=== PATIENT | female | born 2000 | race Hispanic/Latino ===

== ENCOUNTER 2020-05-10 12:54 | Emergency (ER) | payer BC, SELFPAY ==
[2020-05-10 13:14] VITALS: BP 147/93; PULSE 100; RESP 18; TEMP 36.8; O2SAT 100
--- NOTE | 2020-05-10 13:29 | ED.SKABFB ---
HPI - Skin/Abscess/Foreign Bdy General Chief complaint: Skin/Abscess/Foreign Body Stated complaint: rash Time Seen by Provider: 05/10/20 13:29 Source: patient Mode of arrival: ambulatory History of Present Illness HPI narrative: Francesca Decker is a 19 yo female who comes to [facility] for complaints of rash on her hands and arms that is getting painful with handwashing does not itch; started 2 days ago ; has no new close no new bath products no different lotion; states is started to move her hands onto her upper arms; she has no pertinent medical history Related Data Home Medications Medication Instructions Recorded Confirmed Nortrel 35 (21) 1 tablet PO DAILY 01/09/19 05/10/20 Allergies Allergy/AdvReac Type Severity Reaction Status Date / Time No Known Allergies Allergy Verified 01/15/19 07:00 Review of Systems Review of Systems: Narrative: CONSTITUTIONAL: Denies fever, chills, sweats. EYES: Denies visual changes, redness, discharge. ENT: Denies rhinorrhea, congestion, sore throat, otalgia. CARDIOVASCULAR: Denies chest pain, palpitations, edema. RESPIRATORY: Denies dyspnea, wheezing, cough GASTROINTESTINAL: Denies abdominal pain, nausea, vomiting, diarrhea. GENITOURINARY: Denies dysuria, hematuria, abnormal discharge SKIN: Denies itching. Red papular rash on hands and going up arms is randomly placed. Started last few days NEUROLOGIC: Denies numbness, or focal weakness. PSYCHIATRIC: Denies anxiety or depression. PMFSH Past Medical History Medical History (Updated 05/10/20 @ 13:45 by Mone Washburn CNP) No acute medical problems Family History Family History Other Diabetes mellitus Hypertension Seizures Social History Social History (Updated 05/10/20 @ 13:41 by Mone Washburn CNP) Smoking status: Never smoker Alcohol intake: never Living arrangements: with family Gender identity (if verbalized by the patient): Female Comments At time of signature, I agree with nursing past medical, surgical, social and family history. There is no relevant family history pertinent to the presenting complaint. Patient's blood pressure was elevated Exam Narrative: Exam Narrative: GENERAL: This is a well-nourished, well-developed patient, in mild distress. States hands hurt when she washes them HEAD: normocephalic, atraumatic. EYES: Sclera clear/white. Vision is grossly intact. EARS: External ears normal,. Hearing grossly intact. NOSE: External nose normal without nasal discharge, nares without redness, no rhinorrhea. THROAT: Mucous membranes moist, NECK: Neck supple, CARDIOVASCULAR: Regular rate and rhythm without murmurs, gallops, or rubs. RESPIRATORY: Clear to auscultation. Breath sounds equal bilaterally. No wheezes, rales, or rhonchi. GASTROINTESTINAL: Abdomen soft, non-tender, SKIN: warm, intact with random papular rash on hands with dryness across knuckles she has papular rash developing on upper arms none on neck or chest or back NEURO: awake, alert, and oriented to person, place and time. There were no obvious focal neurologic abnormalities. Steady gait EXTREMITIES: Normal range of motion. BACK: Nontender without deformity Course Course Emergency Course: Patient comes to [facility] for papular rash on hands and arms Medrol Dosepak, Eucerin skin cream Follow-up with primary Vital Signs Vital signs: Vital Signs Temperature 98.3 F 05/10/20 13:14 Pulse Rate 100 05/10/20 13:14 Respiratory Rate 18 05/10/20 13:14 Blood Pressure 147/93 H 05/10/20 13:14 Pulse Oximetry 100 05/10/20 13:14 Temperature 98.3 F 05/10/20 13:14 Pulse Rate 100 05/10/20 13:14 Respiratory Rate 18 05/10/20 13:14 Blood Pressure 147/93 H 05/10/20 13:14 Pulse Oximetry 100 05/10/20 13:14 MDM - Skin/Abscess/Foreign Bdy Differential Diagnosis Differential diagnosis: Likely abscess of skin or subcutaneous tissue, viral exan
== END 2020-05-10 13:50 | disposition home or self-care (01) ==
PROVIDERS: Emergency Provider Nurse Practitioner
DX: L23.9 Allergic contact dermatitis, unspecified cause (principal)
CPT/HCPCS: 99213; G0463

== ENCOUNTER 2020-07-15 07:58 | Outpatient (CLI) | payer BC, SELFPAY ==
--- NOTE | ~2020-07-15 | US_ITS ---
EXAMINATION: US right upper quadrant EXAM DATE: 07/15/2020 08:36 INDICATION: R10.11 - Right upper quadrant pain. Postprandial nausea, symptoms 2 months. TECHNIQUE: Multiple grayscale and Doppler images of the abdomen right upper quadrant were obtained (b y a technologist who performed the scan) and subsequently reviewed. There is no prior study for farhad schafer. FINDINGS: The pancreatic head and body are normal in appearance. The pancreatic tail is not visualized. The l iver has normal echogenicity and contour. There are no focal liver lesions identified. There is no evidence of intrahepatic biliary duct dilation. Portal venous flow was seen in the hepatopedal, nor mal direction and has normal Doppler waveform. No right-sided hydronephrosis. Common bile duct measures 2 mm, which is normal. The gallbladder wall is normal in thickness, with ex pected amount of distention. No sonographic evidence of pericholecystic fluid. There is no cholelit hiases. Technologist performing exam reports patient did not demonstrate sonographic Grimm's sign. Please note that this sign is less reliable in patients who have received pain medication. There is a left renal cyst measuring up to 4 cm. I reviewed and discussed this finding and my office with a technologist who performed the examination. IMPRESSION: 1. Normal gallbladder. 2. Left renal 4 cm cyst. Reviewed, dictated and finalized at location A.
== END 2020-07-15 07:59 | disposition home or self-care (01) ==
PROVIDERS: PCP Internal Medicine; Visit Provider Internal Medicine
DX: R10.11 Right upper quadrant pain (principal); N28.1 Cyst of kidney, acquired
CPT/HCPCS: 76705

== ENCOUNTER 2020-08-12 11:17 | Outpatient (CLI) | payer BC, SELFPAY ==
--- NOTE | ~2020-08-12 | NM_ITS ---
NM hepatobiliary wo pharm DATE: 08/12/2020 19:09 INDICATION: Abdominal pain. Dysfunctional gallbladder. TECHNIQUE: Serial images of the abdomen following intravenous injection of 5.1 mCi 99m technetium Cho letec. COMPARISON: 07/15/2020 right upper quadrant abdominal ultrasound FINDINGS: There is hepatic extraction of the radiopharmaceutical. There is activity appearing in the gallbladder within 15 minutes. Bile duct activity is present within 20 minutes. Gallbladder ejection fraction between 7.5 and 59.5 minutes measures 35%. IMPRESSION: Normal examination Reviewed, dictated and finalized at Location [facility]. Reviewed, dictated and finalized at location A. IMPRESSION: Normal examination
== END 2020-08-12 11:18 | disposition home or self-care (01) ==
PROVIDERS: PCP Internal Medicine; Visit Provider Internal Medicine
DX: R10.11 Right upper quadrant pain (principal)
CPT/HCPCS: 78226; A9537

== ENCOUNTER 2020-11-21 15:13 | Emergency (ER) | payer BC, SELFPAY ==
[2020-11-21 15:34] VITALS: BP 156/99; PULSE 81; RESP 20; TEMP 36.9; O2SAT 100
--- NOTE | 2020-11-21 20:06 | PC.NURSE ---
Called by ED MEMO Dimas at 1909 with NO answer. Called by this RN @ 2004 with NO answer.
== END 2020-11-21 20:06 | disposition left against medical advice (07) ==
PROVIDERS: PCP Internal Medicine
DX: S09.90XA Unspecified injury of head, initial encounter (principal)
CPT/HCPCS: 99199

== ENCOUNTER 2020-11-23 15:51 | Emergency (ER) | payer OTHER, BC, SELFPAY ==
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
== END 2020-11-23 17:00 | disposition home or self-care (01) ==
PROVIDERS: Emergency Provider Emergency Medicine; PCP Internal Medicine
DX: S70.10XA Contusion of unspecified thigh, initial encounter (principal); V89.2XXA Person injured in unspecified motor-vehicle accident, traffic, initial encounter; Y99.0 Civilian activity done for income or pay
CPT/HCPCS: 99213; G0463

== ENCOUNTER 2021-09-07 14:16 | Emergency (ER) | payer BC, SELFPAY ==
[2021-09-07 14:27] VITALS: BP 135/84; PULSE 93; RESP 16; TEMP 37.1; O2SAT 99
--- NOTE | 2021-09-07 14:34 | ED.SKABFB ---
HPI - Skin/Abscess/Foreign Bdy General Chief complaint: Skin/Abscess/Foreign Body Stated complaint: rash Time Seen by Provider: 09/07/21 14:35 Source: patient and RN notes reviewed Mode of arrival: ambulatory Limitations: no limitations History of Present Illness HPI narrative: 21-year-old female presents to the [facility] with complaints of a rash. Patient is covered in hives. No lip or tongue swelling. States that she has used new laundry soap. No treatment prior to arrival Related Data Home Medications Medication Instructions Recorded Confirmed medroxyprogesterone 150 mg/mL 150 mg IM DIRECTED 09/07/21 09/07/21 intramuscular syringe Allergies Allergy/AdvReac Type Severity Reaction Status Date / Time dissolvable stitches Allergy Severe Hives Uncoded 11/23/20 16:12 Review of Systems Review of Systems: All systems reviewed & are unremarkable except as noted in HPI and below Constitutional: Constitutional: Reports no additional constitutional complaints, Denies chills and Denies fever(s) Eyes: Eyes: Reports no additional eye complaints ENT: Reports system reviewed and no additional complaints, except as documented Cardiovascular: Cardiovascular: Reports no additional cardiovascular complaints Respiratory: Respiratory: Reports no additional respiratory complaints Gastrointestinal: Gastrointestinal: Reports no additional gastrointestinal complaints Musculoskeletal: Musculoskeletal: Reports no additional musculoskeletal complaints Integumentary/Breasts: Skin/Breast: Reports as per HPI and Reports rash (Hives) Neurologic: Reports system reviewed and no additional complaints, except as documented Psychiatric: Psychiatric: Reports no additional psychiatric complaints Allergic/Immunologic: Allergic/Immunologic: Reports no additional allergic/immunologic complaints PMFSH Past Medical History Medical History (Updated 09/07/21 @ 15:16 by Lorelei Rose APRN) No acute medical problems Family History Family History Other Diabetes mellitus Hypertension Seizures Social History Social History (Updated 08/21/20 @ 07:42 by Lexus Calvin MA) Second hand tobacco smoke exposure: No Alcohol intake: never Substance use: never Gender identity (if verbalized by the patient): Female Comments At the time of my signature, I reviewed and agree with the nursing past medical, surgical, social, and family history. There is no relevant family history pertinent to the patient complaint. Exam Const: General: healthy appearing, no acute distress and alert Nutritional Appearance: well nourished Orientation/consciousness: patient oriented x3 Limitations: no limitations HENMT: Head: normal to inspection Ears: external ears normal General nose exam: Normal external nose present Mouth: Yes Normal oral and palatal mucosa present, Yes lip normal and Yes moist mucous membranes Teeth and gingiva: dentition normal Throat: posterior oropharynx normal Eyes: General: appearance normal, both eyes and all related structures Pupils: Equal, round and reactive pupils present Neck: Neck: normal visual inspection, no lymphadenopathy and no meningeal signs Chest: Chest palpation & inspection: normal inspection of the chest Resp: Effort & Inspection: normal respiratory effort and no use of accessory muscles Auscultation: clear to auscultation bilaterally, no crackles, no rales, no rhonchi and no wheezes Cardio: Rate: regular rate Rhythm: regular rhythm GI: GI Palp: Yes Soft to palpation and No Tenderness to palpation present (GI) Back/Spine/Pelvis: Cervical Spine: normal cervical lordosis Thoracic/Lumbar Spine: thoracic and lumbar spine normal to inspection Skin: General skin exam: normal color Rashes: rashes noted urticaria Wounds: no wounds Other: Generalized hives noted to arms and chest and back Neuro: General: patient oriented x3, mov
[2021-09-07] MEDS: methylPREDNISolone SOD SUCC 125 MG VIAL IM (14:45)
[2021-09-07] MEDS: diphenhydrAMINE HCl CAP 25 MG CAPSULE PO (14:45)
[2021-09-07] MEDS: FAMOTIDINE 20 MG TABLET PO (14:45)
== END 2021-09-07 15:29 | disposition home or self-care (01) ==
PROVIDERS: Emergency Provider Nurse Practitioner; PCP Internal Medicine
DX: L50.9 Urticaria, unspecified (principal)
CPT/HCPCS: 96372; 99213; A9270; G0463; J2930

== ENCOUNTER 2021-12-02 13:07 | Emergency (ER) | payer BC, SELFPAY ==
[2021-12-02 13:20] VITALS: BP 124/81; PULSE 79; RESP 16; TEMP 36.8; O2SAT 100
--- NOTE | 2021-12-02 13:55 | ED.URI ---
HPI - URI/Sore Throat General Chief Complaint: Upper Respiratory Infection Stated Complaint: Sore Throat Time Seen by Provider: 12/02/21 13:55 Source: patient, RN notes reviewed and old records reviewed Mode of arrival: ambulatory Limitations: no limitations History of Present Illness HPI Narrative: 21-year-old female presents to the [facility] with complaints of a sore throat. Patient states that she felt mucus in a sore throat since yesterday. Started with a headache today. Has not taken anything for symptoms. Vitals are stable. Denies any chest pain or abdominal pain. Denies fevers. MD elicited complaint: sore throat Onset (ago): day(s) (1) Related Data Home Medications Medication Instructions Recorded Confirmed medroxyprogesterone 150 mg/mL 150 mg IM DIRECTED 09/07/21 12/02/21 intramuscular syringe Allergies Allergy/AdvReac Type Severity Reaction Status Date / Time dissolvable stitches Allergy Severe Hives Uncoded 11/23/20 16:12 Review of Systems Review of Systems: All systems reviewed & are unremarkable except as noted in HPI and below Constitutional: Constitutional: Reports no additional constitutional complaints, Denies chills and Denies fever(s) Eyes: Eyes: Reports no additional eye complaints ENT: Reports sore throat Cardiovascular: Cardiovascular: Reports no additional cardiovascular complaints Respiratory: Respiratory: Reports no additional respiratory complaints Gastrointestinal: Gastrointestinal: Reports no additional gastrointestinal complaints Musculoskeletal: Musculoskeletal: Reports no additional musculoskeletal complaints Integumentary/Breasts: Skin/Breast: Reports system reviewed and no additional complaints, except as docu Neurologic: Reports system reviewed and no additional complaints, except as documented Psychiatric: Psychiatric: Reports no additional psychiatric complaints Allergic/Immunologic: Allergic/Immunologic: Reports no additional allergic/immunologic complaints [facility] Past Medical History Medical History (Updated 12/02/21 @ 14:09 by Lorelei Rose APRN) Hypertension Hypovitaminosis D No acute medical problems Surgical History Surgical History (Updated 12/02/21 @ 14:00 by Lorelei Rose APRN) No history of previous surgery Family History Family History Other Diabetes mellitus Hypertension Seizures Social History Social History Second hand tobacco smoke exposure: No Alcohol intake: never Substance use: never Gender identity (if verbalized by the patient): Female Comments At the time of my signature, I reviewed and agree with the nursing past medical, surgical, social, and family history. There is no relevant family history pertinent to the patient complaint. Exam Const: General: healthy appearing, no acute distress, alert and well nourished Nutritional Appearance: well nourished Orientation/consciousness: patient oriented x3 Limitations: no limitations HENMT: Head: normal to inspection Ears: external ears normal, TM's normal bilaterally and EAC's normal Face/Nose/Sinus: Normal external nose present and Normal nares present Throat: tonsils normal, uvula midline, postnasal drainage and no uvular edema Eyes: General: appearance normal, both eyes and all related structures Conjunctivae: conjunctivae normal Pupils: Equal, round and reactive pupils present Neck: Neck: normal visual inspection, no lymphadenopathy and no meningeal signs Chest: Chest palpation & inspection: normal inspection of the chest Resp: Effort & Inspection: normal respiratory effort and no use of accessory muscles Auscultation: clear to auscultation bilaterally, no crackles, no rales, no rhonchi and no wheezes Cardio: Rate: regular rate Rhythm: regular rhythm Skin: General skin exam: normal color Rashes: no rashes Wounds: no wounds Neuro:
== END 2021-12-02 14:13 | disposition home or self-care (01) ==
PROVIDERS: Emergency Provider Nurse Practitioner; PCP Internal Medicine
DX: J06.9 Acute upper respiratory infection, unspecified (principal); R09.82 Postnasal drip; I10 Essential (primary) hypertension
CPT/HCPCS: 87081; 87880; 99213; G0463

== ENCOUNTER 2022-02-17 08:04 | Emergency (ER) | payer BC, SELFPAY ==
--- NOTE | 2022-02-17 08:10 | ED.SKABFB ---
HPI - Skin/Abscess/Foreign Bdy General Chief complaint: Allergic Reaction Stated complaint: Hives, allergic reaction Time Seen by Provider: 02/17/22 08:13 Source: patient, RN notes reviewed and old records reviewed Mode of arrival: ambulatory Limitations: no limitations History of Present Illness HPI narrative: 21-year-old female presents to the [facility] with complaints of hives and you take area. Patient states she was at work last night when she picked up a large box with detergent in it. Became itchy when she wiped her face. Hives noted to left cheek, left side of her neck, left back area. Denies any trouble breathing. No lip or tongue swelling. No wheezing. Patient in no acute distress No treatment prior to arrival Related Data Home Medications Medication Instructions Recorded Confirmed medroxyprogesterone 150 mg/mL 150 mg IM DIRECTED 09/07/21 02/17/22 intramuscular syringe Allergies Allergy/AdvReac Type Severity Reaction Status Date / Time dissolvable stitches Allergy Severe Hives Uncoded 02/17/22 08:11 Review of Systems Review of Systems: All systems reviewed & are unremarkable except as noted in HPI and below Constitutional: Constitutional: Reports no additional constitutional complaints Eyes: Eyes: Reports no additional eye complaints ENT: Reports system reviewed and no additional complaints, except as documented Cardiovascular: Cardiovascular: Reports no additional cardiovascular complaints, Denies chest pain and Denies dyspnea Respiratory: Respiratory: Reports no additional respiratory complaints, Denies chest congestion, Denies cough and Denies dyspnea Gastrointestinal: Gastrointestinal: Reports no additional gastrointestinal complaints, Denies abdominal pain, Denies nausea and Denies vomiting Musculoskeletal: Musculoskeletal: Reports no additional musculoskeletal complaints Integumentary/Breasts: Skin/Breast: Reports as per HPI and Reports rash Neurologic: Reports system reviewed and no additional complaints, except as documented Psychiatric: Psychiatric: Reports no additional psychiatric complaints Allergic/Immunologic: Allergic/Immunologic: Reports no additional allergic/immunologic complaints [facility] Past Medical History Medical History Hypertension Hypovitaminosis D No acute medical problems Surgical History Surgical History No history of previous surgery Family History Family History Other Diabetes mellitus Hypertension Seizures Social History Social History Second hand tobacco smoke exposure: No Alcohol intake: never Substance use: never Gender identity (if verbalized by the patient): Female Comments At the time of my signature, I reviewed and agree with the nursing past medical, surgical, social, and family history. There is no relevant family history pertinent to the patient complaint. Exam Const: General: cooperative, healthy appearing, comfortable, no acute distress, well developed, alert and well nourished Nutritional Appearance: well nourished Orientation/consciousness: patient oriented x3 Limitations: no limitations HENMT: Head: normal to inspection Ears: hearing grossly normal bilaterally and external ears normal Face/Nose/Sinus: Normal external nose present, Normal nares present, Normal nasal mucous membranes and turbinates present and normal facial exam Face and sinus: normal facial exam Mouth: Yes Normal oral and palatal mucosa present, Yes lip normal and Yes moist mucous membranes Throat: posterior oropharynx normal and uvula midline Eyes: General: appearance normal, both eyes and all related structures Alignment and Position: alignment normal Periorbital: periorbital findings normal Conjunctivae: conjunctivae normal Pu
[2022-02-17 08:12] VITALS: BP 122/59; PULSE 83; RESP 18; TEMP 36.9; O2SAT 100
== END 2022-02-17 08:24 | disposition home or self-care (01) ==
PROVIDERS: Emergency Provider Nurse Practitioner
DX: L50.9 Urticaria, unspecified (principal); I10 Essential (primary) hypertension
CPT/HCPCS: 99213; G0463

== ENCOUNTER 2023-02-24 13:45 | Emergency (ER) | payer OTHER, BC, SELFPAY ==
[2023-02-24 14:22] VITALS: BP 146/94; PULSE 74; RESP 16; TEMP 36.9; O2SAT 99
--- NOTE | 2023-02-24 15:15 | ED.EAR ---
HPI - Ear Problem General Chief complaint: Ear Stated complaint: cold,ear pain Source: patient Mode of arrival: ambulatory Limitations: no limitations History of Present Illness HPI Narrative: 22 y/o female presented for c/o right ear pain for 2 to, following nasal congestion and cough for about 10 days. She has been taking Mucinex for symptoms and started taking Tylenol for the ear pain. She denies ear drainage, tinnitus, dizziness, nausea, vomiting, fevers or chills. MD Complaint: ear pain Related Data Home Medications Medication Instructions Recorded Confirmed medroxyprogesterone 150 mg/mL 150 mg IM [id number] 02/24/23 02/24/23 intramuscular syringe Allergies Allergy/AdvReac Type Severity Reaction Status Date / Time dissolvable stitches Allergy Severe Hives Uncoded 02/24/23 14:07 Review of Systems Review of Systems: CONSTITUTIONAL: Denies malaise, chills, or fever. EYES: Denies visual changes, redness, or discharge. ENT: reports rhinorrhea, congestion, ear pain CARDIOVASCULAR: Denies chest pain, palpitations, or edema. RESPIRATORY: Denies cough or dyspnea. GASTROINTESTINAL: Denies abdominal pain, nausea, vomiting, diarrhea SKIN: Denies rash or itching. MUSCULOSKELETAL: Denies myalgia. NEUROLOGIC: Denies headache. All systems reviewed & are unremarkable except as noted in HPI and below PMFSH Past Medical History Medical History Anxiety Hypertension Hypovitaminosis D No acute medical problems Surgical History Surgical History No history of previous surgery Family History Family History Other Diabetes mellitus Hypertension Seizures Social History Social History Smoking status: Never smoker Second hand tobacco smoke exposure: No Alcohol intake: never Substance use: never Substance use type: does not use Lack of Transportation: No Lack of Food: Never True Current Housing: I Have Housing Concerned About Future Housing: No Difficulty Paying Gas/Electric Bills: No Difficulty Paying for Meds: No Currently Unemployed: No Education: High School Diploma/GED Difficulty w/ Childcare or Family Care: No Living arrangements: with family Gender identity (if verbalized by the patient): Female Comments At time of signature, agree with nursing past medical, surgical, social and family history. There is no relevant family history pertinent to the presenting complaint Exam Narrative: GENERAL: Well-appearing EYES: conjunctivae clear ENT: Nares clear. Mucous membranes moist. left TM pearly duarte with dull light reflex; Right TM erythematous, bulging and intact, canal not erythematous, no drainage no tragal tenderness. Oropharynx not erythematous without lesions. NECK: Supple. No lymphadenopathy CHEST: Clear to auscultation, breath sounds equal. No wheezing, rhonchi, rales, or stridor. No respiratory distress, speaks in full sentences. HEART: Regular rate and rhythm. No murmur heard. SKIN: Warm, dry, no rash. NEURO: Alert and oriented x3. PSYCH: Normal mood and affect Course Course Emergency Course: Patient is aware of diagnosis, understands and agrees to treatment plan. Anticipatory guidance given. Patient agrees to follow-up as directed and is aware of reasons to seek care at the emergency department. Portions of this record may have been created with voice recognition software Level of Care: Express Care Visit Vital Signs Vital signs: Vital Signs Temperature 98.5 F 02/24/23 14:22 Pulse Rate 74 02/24/23 14:22 Respiratory Rate 16 02/24/23 14:22 Blood Pressure 146/94 H 02/24/23 14:22 Pulse Oximetry 99 02/24/23 14:22 Oxygen Delivery Room Air 02/24/23 14:22 Temperature 98.5 F 02/24/23 14:22 Pulse Rate 74
== END 2023-02-24 15:23 | disposition home or self-care (01) ==
PROVIDERS: Emergency Provider Nurse Practitioner Family
DX: H66.001 Acute suppurative otitis media without spontaneous rupture of ear drum, right ear (principal); I10 Essential (primary) hypertension
CPT/HCPCS: 99213; G0463

== ENCOUNTER 2023-04-09 08:53 | Emergency (ER) | payer OTHER, BC, SELFPAY ==
[2023-04-09 09:07] VITALS: BP 121/71; PULSE 73; RESP 16; TEMP 37.1; O2SAT 100
--- NOTE | 2023-04-09 09:08 | ED.URI ---
HPI - URI/Sore Throat General Chief Complaint: Upper Respiratory Infection Stated Complaint: throat hurts,stomach pain Time Seen by Provider: 04/09/23 09:10 Source: patient Mode of arrival: ambulatory Limitations: no limitations History of Present Illness HPI Narrative: Francesca is a 22-year-old female patient presenting to the clinic with complaints of sore throat, cough, and stomach upset x2 days. She is concerned that she may have strep. Denies any fever, chills, body aches, or URI symptoms MD elicited complaint: cough, sore throat and other (Upset stomach) Related Data Home Medications Medication Instructions Recorded Confirmed medroxyprogesterone 150 mg/mL 150 mg IM [id number] 02/24/23 04/09/23 intramuscular syringe Allergies Allergy/AdvReac Type Severity Reaction Status Date / Time dissolvable stitches Allergy Severe Hives Uncoded 04/09/23 09:15 Review of Systems Review of Systems: Pertinent positives per HPI. Patient denies any fever, chills, rash, headache, visual changes, dizziness, shortness of breath, chest pain, palpitations, vomiting, diarrhea, constipation, abdominal pain, or any urinary issues. [facility] Past Medical History Medical History Anxiety Hypertension Hypovitaminosis D No acute medical problems Surgical History Surgical History No history of previous surgery Family History Family History Other Diabetes mellitus Hypertension Seizures Social History Social History Smoking status: Never smoker Second hand tobacco smoke exposure: No Alcohol intake: never Substance use: never Substance use type: does not use Lack of Transportation: No Lack of Food: Never True Current Housing: I Have Housing Concerned About Future Housing: No Difficulty Paying Gas/Electric Bills: No Difficulty Paying for Meds: No Currently Unemployed: No Education: High School Diploma/GED Difficulty w/ Childcare or Family Care: No Living arrangements: with family Gender identity (if verbalized by the patient): Female Comments At the time of my signature, I reviewed and agree with the nursing past medical, surgical, social, and family history. There is no relevant family history pertinent to the patient complaint. Exam Narrative: General: Well-developed, well nourished, in no apparent distress Head: Normocephalic, atraumatic Eyes: Pupils equally round and reactive to light bilaterally, EOM intact, sclera and conjunctive clear, no discharge, lids normal Ears: TMs intact and clear, ear canals clear, no drainage, grossly hearing normal. Nose: Nares patent, no discharge, no inflammation, no sinus tenderness. Mouth: Oral pharynx red without lesions or masses, good dentition, MMM. Neck: Supple, trachea midline, mild enlargement of anterior cervical nodes, no thyroid masses or goiter palpable. Cardio: Regular rate and rhythm, s1 and s2 normal, no murmur appreciated. Resp: Clear to auscultation bilaterally, no rhonchi, rales, wheezing or rubs Course Course Emergency Course: Portions of this record may have been created with voice recognition software. Level of Care: Express Care Visit Vital Signs Vital signs: Vital signs reviewed MDM - URI/Sore Throat MDM Narrative Medical decision making narrative: At the time of visit patient is resting comfortably on the exam table. Patient appears to be nontoxic. Labs: Strep test was negative in the clinic today. We will send strep for culture. Plan: I suspect patient has viral pharyngitis. Supportive measures were discussed with the patient and they voiced understanding discharge instructions and agrees to treatment plan. Return precautions reviewed Differential Diagnosis Differential alejandro
== END 2023-04-09 09:35 | disposition home or self-care (01) ==
PROVIDERS: Emergency Provider Nurse Practitioner Family
DX: J02.9 Acute pharyngitis, unspecified (principal); I10 Essential (primary) hypertension
CPT/HCPCS: 87081; 87880; 99213; G0463

== ENCOUNTER 2023-07-08 16:14 | Emergency (ER) | payer OTHER, BC, SELFPAY ==
--- NOTE | ~2023-07-08 | US_ITS ---
EXAMINATION: US OB <= 14 weeks fetus INDICATION: BLEEDING, 8 WEEKS TECHNIQUE: Sonography of the pelvis was performed by transabdominal and transvaginal techniques. COMPARISON: None. RESULT: Uterus: 7.8 x 5.8 x 6.9 cm. Anteverted. Homogenous myometrium. Intrauterine gestational sac: Single present. Yolk sac: 0.5 cm . Embryo: Single present. [place] rump length: 1.2 cm, corresponding gestational age 7 weeks, 3 days. G estational heart rate: present 148 bpm. Subgestational hematoma: Absent . Right ovary: 4.4 x 2.4 x 2.5 cm. Vascular flow is present. 2.7 cm cystic ovarian lesion likely rep resenting 2 small adjacent simple cysts. Left ovary: 3.8 x 2.3 x 2.2 cm. Vascular flow is present. No adnexal mass. Pelvis free fluid: None. IMPRESSION: Single, live intrauterine gestation. Estimated Gestational Age: 7 weeks, 3 days by crown rump length. ROSALIE by ultrasound 02/21/2024. Reviewed, dictated and finalized at location [facility]. IMPRESSION: Single, live intrauterine gestation. Estimated Gestational Age: 7 weeks, 3 days by crown rump length. ROSALIE by ultras ound 02/21/2024.
[2023-07-08 16:17] VITALS: BP 133/81; PULSE 77; RESP 16; TEMP 36.8; O2SAT 100
[2023-07-08 16:33] LABS: Basophils Percent Auto 0.4 % (0.2-1.2); Eosinophils Absolute Auto 0.1 K/mm3 (0-0.3); Eosinophils Percent Auto 0.9 % (0-4.4); Hematocrit 30.1 % (37.0-47.0); Hemoglobin 10.4 g/dL (12.0-15.0); Immature Granulocyte Absolute 0.03 K/mm3 (0.00-0.031); Immature Granulocyte Percent A 0.3 % (0-0.5); Lymphocytes Absolute Auto 2.06 K/mm3 (0.9-3.2); Lymphocytes Percent Auto 21.2 % (18.3-44.2); Mean Corpuscular HGB Conc 34.6 g/dl (32-36); Mean Corpuscular Hemoglobin 32.3 pg (26-34); Mean Corpuscular Volume 93.5 fl (80-100); Mean Platelet Volume 10.6 fl (7.4-10.4); Monocytes Absolute Auto 0.5 K/mm3 (0.1-0.6); Monocytes Percent Auto 4.8 % (2.6-8.5); Neutrophils Percent Auto 72.4 % (45.5-73.1); Platelet Count Result 217 k/mm3 (150-375); Red Blood Count 3.22 M/mm3 (4.2-5.4); Red Cell Distribution Width 11.7 % (11.5-14.5); White Blood Count 9.7 K/mm3 (4.5-10.0)
[2023-07-08 16:44] LABS: Alanine Aminotransferase 11 U/L (6-35); Albumin Level 4.4 g/dL (3.5-5.1); Alkaline Phosphatase 36 U/L (38-126); Anion Gap 6 mmol/L (4-12); Aspartate Amino Transferase 17 U/L (14-36); Bilirubin,Total 0.4 mg/dL (0.2-1.3); Blood Urea Nitrogen 18 mg/dL (7-17); Calcium 9.4 mg/dL (8.4-10.2); Carbon Dioxide 23 mmol/L (22-30); Chloride 106 mmol/L (98-107); Estimated CRCL calculation 91 ml/min; Estimated Glomerular Filt Rate > 60; Glucose 87 mg/dL (65-110); Potassium 3.5 mmol/L (3.4-5.0); Sodium 135 mmol/L (137-145)
--- NOTE | 2023-07-08 17:09 | ED.FEMALEGU ---
HPI - Female Genitourinary General Chief complaint: Vaginal Bleeding Stated complaint: Vag Bleeding, 7 Weeks Preg Time Seen by Provider: 07/08/23 17:00 History of Present Illness HPI Narrative: 22 y/o Female, who is currently approximately 7w4d presents to emergency department for vaginal bleeding in . LMP 06/15. Patient states earlier today she went to the bathroom when she noticed a small amount of blood in her underwear. She states she has not changed her panty liner since and describes the bleeding as spotting. She denies abdominal pain or cramping, passage of blood clots or tissue, vomiting or fever, dysuria or hematuria, chest pain shortness breath, lightheadedness or dizziness. She is reporting some nausea. Her OBGYN is Dr. Lopez and she is scheduled to see him within the following week. She has not had an ultrasound confirming intrauterine . Related Data Home Medications Medication Instructions Recorded Confirmed medroxyprogesterone 150 mg/mL 150 mg IM [id number] 02/24/23 04/09/23 intramuscular syringe Allergies Allergy/AdvReac Type Severity Reaction Status Date / Time dissolvable stitches Allergy Severe Hives Uncoded 07/08/23 16:19 Review of Systems Review of Systems: CONSTITUTIONAL: Denies fever, chills, or sweats. EYES: Denies visual changes, redness, or discharge. ENT: Denies rhinorrhea, congestion, sore throat, or otalgia. CARDIOVASCULAR: Denies chest pain, palpitations, or edema. RESPIRATORY: Denies cough or dyspnea. GASTROINTESTINAL: Denies abdominal pain, nausea, vomiting, or diarrhea. GENITOURINARY: See HPI SKIN: Denies rash or itching. MUSCULOSKELETAL: Denies back pain, joint pain, or myalgia. NEUROLOGIC: Denies headache, numbness, or weakness. PSYCHIATRIC: Denies anxiety or depression. [facility] Past Medical History Medical History Anxiety Hypertension Hypovitaminosis D No acute medical problems Surgical History Surgical History No history of previous surgery Family History Family History Other Diabetes mellitus Hypertension Seizures Social History Social History Smoking status: Never smoker Second hand tobacco smoke exposure: No Alcohol intake: never Substance use: never Substance use type: does not use Lack of Transportation: No Lack of Food: Never True Current Housing: I Have Housing Concerned About Future Housing: No Difficulty Paying Gas/Electric Bills: No Difficulty Paying for Meds: No Currently Unemployed: No Education: High School Diploma/GED Difficulty w/ Childcare or Family Care: No Living arrangements: with family Gender identity (if verbalized by the patient): Female Exam Narrative: GENERAL: Well-appearing, well-nourished, and in no acute distress. HEAD: Normocephalic, atraumatic. EYES: PERRLA and EOMI. ENT: Nares clear, no rhinorrhea or epistaxis. Mucous membranes moist. NECK: Supple. CHEST: Clear to auscultation. No respiratory distress. HEART: Regular rate and rhythm. No murmur heard. Normal peripheral pulses. ABDOMEN: Soft, nontender, nondistended, normal active bowel sounds. No rebound, guarding or rigidity. No CVA tenderness. : Chaperoned by Angela martinez. Normal external genitalia without rashes or lesions. Vaginal vault with physiologic discharge. No bleeding. Cervical os is closed. No blood clots or tissue visualized. No cervical motion tenderness, adnexal masses or tenderness. EXTREMITIES: Normal range of motion. No edema. SKIN: Warm, dry, no rash. NEURO: No focal deficits. Alert and oriented x3 Course Vital Signs Vital signs: Vital Signs Temperature 98.2 F 07/08/23 16:17 Pulse Rate 77 07/08/23 16:17 Respiratory Rate 16 07/08/23 16
[2023-07-08 18:37] LABS: Appearance Urine Clear (Clear); Bacteria Urine None Seen /hpf; Bilirubin Urine Negative (Negative); Blood Urine 1+ (Negative); Color Urine Yellow (Yellow); Glucose Urine UA Negative (Negative); Ketones Urine Negative (Negative); Leukocyte Esterase Ur Trace LEU/UL (Negative); Need Manual Microscopic Reviewed; Nitrate Urine Negative (Negative); Non Pathogenic Casts 0-2; Protein Urine Negative (Negative); RBC Urine 0-2 /hpf (0-2); Specific Grav Ur 1.005 (1.001-1.035); Squamous Epithelial Cell Urine Occasional /hpf (Few); Urobilinogen Urine 0.2 mg/dL (<2.0); WBC Urine 0-5 /hpf (0-3); pH Urine 6.5 (5.0-9.0)
[2023-07-08 18:43] LABS: Add Urine Microscopic? YES
[2023-07-08 18:50] LABS: INR 1.2; Partial Thromboplastin Time 29.4 Seconds (22.3-36.8); Prothrombin Time 15.6 Seconds (11.1-14.7)
[2023-07-08 19:25] VITALS: BP 137/85; PULSE 57; RESP 18; O2SAT 100
== END 2023-07-08 19:26 | disposition home or self-care (01) ==
PROVIDERS: Family Medicine; Emergency Provider Physician Assistant; PCP Family Medicine
DX: O20.9 Hemorrhage in early pregnancy, unspecified (principal); Z3A.01 Less than 8 weeks gestation of pregnancy
CPT/HCPCS: 36415; 76801; 80053; 81001; 84702; 85025; 85461; 85610; 85730; 86850; 86900; 86901; 99284

== ENCOUNTER 2023-07-10 15:57 | Outpatient (CLI) | payer OTHER, BC, SELFPAY | END 2023-07-10 15:58 | disposition home or self-care (01) | PROVIDERS: PCP Family Medicine; Visit Provider Obstetrics & Gynecology | DX: O20.9 Hemorrhage in early pregnancy, unspecified (principal); Z3A.00 Weeks of gestation of pregnancy not specified | CPT/HCPCS: 36415; 84702 ==

== ENCOUNTER 2023-11-16 15:05 | Observation (INO) | payer BC, SELFPAY ==
[2023-11-16 15:20] VITALS: BP 141/95; PULSE 78
[2023-11-16 15:30] VITALS: BP 138/83; PULSE 79
--- NOTE | 2023-11-16 15:43 | OBADM ---
This patient, Francesca Leslie, admitted to the OB room OB Post 116 for observation. Patient/family oriented to hospital policies and general routines including ID bracelet, bed and alarms, visiting hours, pain management, procedures, bathroom and other care routines, personal items, smoking policy, room service/diet, and visiting hours. Patient/Family are encouraged to report perceived risks to care and to ask questions if they do not understand what they are told or what they should do.
[2023-11-16 15:44] VITALS: BMI 27.5
[2023-11-16 15:45] VITALS: BP 140/92; PULSE 69
[2023-11-16 16:20] VITALS: BP 138/83; PULSE 96
--- NOTE | 2023-12-06 22:10 | PM.OBTRLD ---
OB - Triage/Final Diagnosis Visit Information Comments/Additional reasons for admission: I have assessed the risk for this patient, Francesca Leslie, and determined that she would benefit from observation care. Final Diagnosis (1) False labor: Code(s): O47.9 - False labor, unspecified Status: Acute
== END 2023-11-16 16:20 | disposition home or self-care (01) ==
PROVIDERS: Admitting Provider Obstetrics & Gynecology; PCP Family Medicine; Visit Provider Obstetrics & Gynecology
DX: O47.9 False labor, unspecified (principal); Z3A.00 Weeks of gestation of pregnancy not specified
CPT/HCPCS: 59025; G0378; G0379

== ENCOUNTER 2023-12-22 16:34 | Outpatient (CLI) | payer OTHER, BC, SELFPAY ==
[2023-12-22 16:59] VITALS: BP 129/80; PULSE 91
[2023-12-22 17:10] LABS: Basophils Absolute Auto 0.1 K/mm3 (0.0-0.1); Basophils Percent Auto 0.5 % (0.2-1.2); Eosinophils Absolute Auto 0.3 K/mm3 (0-0.3); Eosinophils Percent Auto 2.3 % (0-4.4); Hematocrit 28.4 % (37.0-47.0); Hemoglobin 10.1 g/dL (12.0-15.0); Immature Granulocyte Absolute 0.17 K/mm3 (0.00-0.031); Immature Granulocyte Percent A 1.6 % (0-0.5); Lymphocytes Absolute Auto 1.77 K/mm3 (0.9-3.2); Lymphocytes Percent Auto 16.5 % (18.3-44.2); Mean Corpuscular HGB Conc 35.6 g/dl (32-36); Mean Corpuscular Hemoglobin 35.3 pg (26-34); Mean Corpuscular Volume 99.3 fl (80-100); Mean Platelet Volume 10.7 fl (7.4-10.4); Monocytes Absolute Auto 0.5 K/mm3 (0.1-0.6); Monocytes Percent Auto 4.7 % (2.6-8.5); Neutrophils Percent Auto 74.4 % (45.5-73.1); Platelet Count Result 159 k/mm3 (150-375); Red Blood Count 2.86 M/mm3 (4.2-5.4); Red Cell Distribution Width 12.7 % (11.5-14.5); White Blood Count 10.7 K/mm3 (4.5-10.0)
[2023-12-22 17:11] VITALS: BP 121/74; BP 129/80; PULSE 79; PULSE 91; BMI 31.4
[2023-12-22 17:15] VITALS: BP 121/74; PULSE 79
[2023-12-22 17:17] LABS: Add Urine Microscopic? YES; Appearance Urine Clear (Clear); Bacteria Urine 1+ /hpf; Bilirubin Urine Negative (Negative); Blood Urine Negative (Negative); Color Urine Yellow (Yellow); Glucose Urine UA Negative (Negative); Ketones Urine Negative (Negative); Leukocyte Esterase Ur Trace LEU/UL (Negative); Nitrate Urine Negative (Negative); Non Pathogenic Casts 0-2; Protein Urine Negative (Negative); RBC Urine 0-2 /hpf (0-2); Squamous Epithelial Cell Urine Few /hpf (Few); Urobilinogen Urine 0.2 mg/dL (<2.0); WBC Urine 0-5 /hpf (0-3)
[2023-12-22 17:21] LABS: Alanine Aminotransferase 18 U/L (6-35); Albumin Level 3.4 g/dL (3.5-5.1); Alkaline Phosphatase 73 U/L (38-126); Anion Gap 7 mmol/L (4-12); Aspartate Amino Transferase 20 U/L (14-36); Bilirubin,Total 0.2 mg/dL (0.2-1.3); Blood Urea Nitrogen 15 mg/dL (7-17); Calcium 8.7 mg/dL (8.4-10.2); Carbon Dioxide 20 mmol/L (22-30); Chloride 107 mmol/L (98-107); Estimated Glomerular Filt Rate > 60; Glucose 112 mg/dL (65-110); Potassium 3.7 mmol/L (3.4-5.0); Sodium 134 mmol/L (137-145); Uric Acid 5.3 mg/dL (2.5-7.5)
[2023-12-22 17:27] VITALS: BP 121/74; PULSE 79
[2023-12-22 17:38] LABS: Creatinine Urine 66.8 mg/dL; Total Protein Urine Random 11 mg/dL; Ur Ttl Prot Creatinine Ratio 0.16 mg/mg (0-0.20)
== END 2023-12-22 17:54 | disposition home or self-care (01) ==
LOC: ANHOBOP 16:47 → ANHOBPP 16:48
PROVIDERS: PCP Family Medicine; Visit Provider Obstetrics & Gynecology
DX: O16.9 Unspecified maternal hypertension, unspecified trimester (principal); Z3A.00 Weeks of gestation of pregnancy not specified
CPT/HCPCS: 36415; 59025; 80053; 81001; 82570; 84156; 84550; 85025

== ENCOUNTER 2024-01-13 15:10 | Outpatient (RCR) | payer BC, SELFPAY ==
[2024-01-13 16:04] VITALS: BP 129/87; PULSE 75
== END 2024-03-09 16:11 | disposition home or self-care (01) ==
LOC: ANHOBOP 15:10
PROVIDERS: PCP Obstetrics & Gynecology; Visit Provider Obstetrics & Gynecology
DX: O16.3 Unspecified maternal hypertension, third trimester (principal); Z3A.34 34 weeks gestation of pregnancy
CPT/HCPCS: 59025

== ENCOUNTER 2024-01-24 12:47 | Outpatient (CLI) | payer OTHER, BC, SELFPAY ==
[2024-01-24 13:21] VITALS: BP 136/102; PULSE 82; TEMP 37.3
[2024-01-24 13:23] LABS: Basophils Percent Auto 0.4 % (0.2-1.2); Eosinophils Absolute Auto 0.1 K/mm3 (0-0.3); Hematocrit 29.4 % (37.0-47.0); Hemoglobin 10.4 g/dL (12.0-15.0); Immature Granulocyte Absolute 0.09 K/mm3 (0.00-0.031); Immature Granulocyte Percent A 0.9 % (0-0.5); Lymphocytes Absolute Auto 1.68 K/mm3 (0.9-3.2); Lymphocytes Percent Auto 16.4 % (18.3-44.2); Mean Corpuscular HGB Conc 35.4 g/dl (32-36); Mean Corpuscular Hemoglobin 34.9 pg (26-34); Mean Corpuscular Volume 98.7 fl (80-100); Monocytes Absolute Auto 0.4 K/mm3 (0.1-0.6); Neutrophils Absolute Auto 7.9 K/mm3 (1.3-6.7); Neutrophils Percent Auto 77.3 % (45.5-73.1); Platelet Count Result 170 k/mm3 (150-375); Red Blood Count 2.98 M/mm3 (4.2-5.4); Red Cell Distribution Width 12.2 % (11.5-14.5); White Blood Count 10.3 K/mm3 (4.5-10.0)
[2024-01-24 13:30] VITALS: BP 139/87; PULSE 76; BMI 33.4
[2024-01-24 13:39] LABS: Alanine Aminotransferase 13 U/L (6-35); Albumin Level 3.9 g/dL (3.5-5.1); Alkaline Phosphatase 118 U/L (38-126); Anion Gap 7 mmol/L (4-12); Aspartate Amino Transferase 22 U/L (14-36); Bilirubin,Total 0.5 mg/dL (0.2-1.3); Blood Urea Nitrogen 21 mg/dL (7-17); Calcium 8.9 mg/dL (8.4-10.2); Carbon Dioxide 19 mmol/L (22-30); Chloride 110 mmol/L (98-107); Estimated CRCL calculation 87 ml/min; Estimated Glomerular Filt Rate > 60; Glucose 76 mg/dL (65-110); Potassium 3.9 mmol/L (3.4-5.0); Sodium 136 mmol/L (137-145); Uric Acid 6.5 mg/dL (2.5-7.5)
[2024-01-24 13:42] LABS: Creatinine Urine 242.9 mg/dL; Total Protein Urine Random 32 mg/dL; Ur Ttl Prot Creatinine Ratio 0.13 mg/mg (0-0.20)
[2024-01-24 13:44] LABS: Add Urine Microscopic? YES; Appearance Urine Cloudy (Clear); Bacteria Urine 2+ /hpf; Bilirubin Urine Negative (Negative); Blood Urine Negative (Negative); Color Urine Yellow (Yellow); Glucose Urine UA Negative (Negative); Ketones Urine Trace mg/dL (Negative); Leukocyte Esterase Ur Negative LEU/UL (Negative); Need Manual Microscopic Reviewed; Nitrate Urine Negative (Negative); Protein Urine 1+ mg/dL (Negative); RBC Urine 0-2 /hpf (0-2); Specific Grav Ur 1.028 (1.001-1.035); Squamous Epithelial Cell Urine Many /hpf (Few); WBC Urine 0-5 /hpf (0-3); pH Urine 5.5 (5.0-9.0)
[2024-01-24 13:45] VITALS: BP 145/90; PULSE 82
[2024-01-24 14:00] VITALS: BP 135/86; PULSE 68
[2024-01-24 14:15] VITALS: BP 139/85; PULSE 68
== END 2024-01-24 14:30 | disposition home or self-care (01) ==
LOC: ANHOBOP 12:53 → ANHOBPP 12:55
PROVIDERS: PCP Obstetrics & Gynecology; Visit Provider Obstetrics & Gynecology
DX: O13.9 Gestational [pregnancy-induced] hypertension without significant proteinuria, unspecified trimester (principal); Z3A.00 Weeks of gestation of pregnancy not specified
CPT/HCPCS: 36415; 59025; 80053; 81001; 82570; 84156; 84550; 85025; 99199

== ENCOUNTER 2024-01-31 05:26 | Inpatient (IN) | payer BC, SELFPAY ==
[2024-01-31] VITALS (73 sets, daily range): BP systolic 104–168; BP diastolic 59–134; PULSE 62–245; RESP 14–18; TEMP 36.2–36.8; O2SAT 87–100; BMI 34.0
--- NOTE | 2024-01-31 05:26 | LDADM ---
This patient, Francesca Leslie, was admitted to Labor/Delivery/Recovery 120 on 01/31/24 at 05:26. Plans for labor, pain management and were discussed with patient. Patient/family oriented to hospital policies and general routines including ID bracelet, bed and alarms, visiting hours, pain management, procedures, bathroom and other care routines, personal items, smoking policy, room service/diet and guest tray routines, security routines, and visiting hours. Patient/Family are encouraged to report perceived risks to care and to ask questions if they do not understand what they are told or what they should do. See OBIX for further documentation.
[2024-01-31] MEDS: LACTATED RINGERS 1,000 ML 125 ML IV CONT ×3 (06:20→09:11)
[2024-01-31 06:24] LABS: Basophils Percent Auto 0.4 % (0.2-1.2); Eosinophils Absolute Auto 0.3 K/mm3 (0-0.3); Eosinophils Percent Auto 2.8 % (0-4.4); Hematocrit 29.3 % (37.0-47.0); Hemoglobin 10.3 g/dL (12.0-15.0); Immature Granulocyte Absolute 0.12 K/mm3 (0.00-0.031); Immature Granulocyte Percent A 1.2 % (0-0.5); Lymphocytes Absolute Auto 2.34 K/mm3 (0.9-3.2); Lymphocytes Percent Auto 23.1 % (18.3-44.2); Mean Corpuscular HGB Conc 35.2 g/dl (32-36); Mean Corpuscular Hemoglobin 34.9 pg (26-34); Mean Corpuscular Volume 99.3 fl (80-100); Mean Platelet Volume 11.6 fl (7.4-10.4); Monocytes Absolute Auto 0.6 K/mm3 (0.1-0.6); Monocytes Percent Auto 5.9 % (2.6-8.5); Neutrophils Absolute Auto 6.8 K/mm3 (1.3-6.7); Neutrophils Percent Auto 66.6 % (45.5-73.1); Platelet Count Result 169 k/mm3 (150-375); Red Blood Count 2.95 M/mm3 (4.2-5.4); Red Cell Distribution Width 12.3 % (11.5-14.5); White Blood Count 10.1 K/mm3 (4.5-10.0)
--- NOTE | 2024-01-31 06:51 | WPDANESEPPF ---
Anes - Initial Pre Proc Eval Procedure: Operation Date: 01/31/24 07:30 Proposed Procedures p ECV Procedure/ Version - Thai Bustamante MD s Possible Primary Section - Thai Bustamante MD Date/Time: 01/31/24 06:51 Surgeon: Thai Bustamante MD Pre Op Diagnosis: Pre Admit, breech Patient Data Age: 23 Gender: F Height: 1.52 m Weight: 79 kg Last Vital Signs Temp 36.8 C 01/31/24 06:00 Pulse 73 01/31/24 06:36 BP 141/72 H 01/31/24 06:36 Pulse Ox 100 01/31/24 06:46 Allergies Allergy/AdvReac Type Severity Reaction Status Date / Time dissolvable stitches Allergy Severe Hives Uncoded 01/29/24 12:40 Home Medications Medication Instructions Recorded Confirmed Type metoprolol succinate 50 mg 50 mg PO DAILY #30 tabs 05/30/23 01/24/24 Rx tablet,extended release 24 hr aspirin 81 mg tablet 81 mg PO DAILY 11/16/23 01/24/24 History vit no.95-ferrous 1 tablet PO DAILY 01/24/24 01/24/24 History fumarate 28 mg-folic acid 800 mcg tablet () Laboratory Tests 01/31/24 06:12 WBC 10.1 H K/mm3 (4.5-10.0) RBC 2.95 L M/mm3 (4.2-5.4) Hgb 10.3 L g/dL (12.0-15.0) Hct 29.3 L % (37.0-47.0) MCV 99.3 fl (80-100) MCH 34.9 H pg (26-34) MCHC 35.2 g/dl (32-36) RDW 12.3 % (11.5-14.5) Plt Count 169 k/mm3 (150-375) MPV 11.6 H fl (7.4-10.4) Immature Gran % (Auto) 1.2 H % (0-0.5) Neut % (Auto) 66.6 % (45.5-73.1) Lymph % (Auto) 23.1 % (18.3-44.2) Elbert % (Auto) 5.9 % (2.6-8.5) Eos % (Auto) 2.8 % (0-4.4) Baso % (Auto) 0.4 % (0.2-1.2) Lymph # (Auto) 2.34 K/mm3 (0.9-3.2) Elbert # (Auto) 0.6 K/mm3 (0.1-0.6) Eos # (Auto) 0.3 K/mm3 (0-0.3) Baso # (Auto) 0.0 K/mm3 (0.0-0.1) Abs Immat Gran (auto) 0.12 H K/mm3 (0.00-0.031) Absolute Neuts (auto) 6.8 H K/mm3 (1.3-6.7) Absolute Nucleated RBC 0.000 K/mm3 (0.0-0.012) Nucleated RBC % 0.0 % (0.0-0.2) RPR Pending HIV 1&2 Ab/P24 Ag 4thGn Pending Patient hx anesthesia problems: none Family hx anesthesia problems: none Results Review: All pre-operative results and documents have been reviewed as part of the pre-operative evaluation. [facility] Past Medical History Medical History Anxiety Hypertension Hypovitaminosis D No acute medical problems Surgical History Surgical History No history of previous surgery Family History Family History Sibling Diabetes mellitus Grandparent Hypertension Kidney disease Mother Hypertension Kidney disease Father Seizures Social History Social History Smoking status: Never smoker Second hand tobacco smoke exposure: No Alcohol intake: never Substance use: never Substance use type: does not use Do You Feel Safe in your Home?: Yes Lack of Transportation: No Lack of Food: Never True Current Housing: I Have Housing Concerned About Future Housing: No Difficulty Paying Gas/Electric Bills: No Difficulty Paying for Meds: No Currently Unemployed: No Education: High School Diploma/GED Difficulty w/ Childcare or Family Care: No Living arrangements: with family Gender identity (if verbalized by the patient): Female Spiritual care concerns: No Anes - Eval Final PreProcedure Day of Procedure 01/31/24 06:51 Patient weight: obese Heart: regular rate and rhythm Lungs: clear to auscultation Airway: Mallampati scale class II Neurological: alert and oriented Last oral intake: >/= 8 hours ASA classification: III Emergent: no Anesthetic plan: proceed Anesthesia type and monitoring: regional epidural and standard monitoring Results Review: All pre-operative results and documents have been reviewed as part of the pre-operative evaluation. Informed Consent: The patient's anesthetic plan and its attendant risks and benefits were discussed with the patient/family/POA. Questions were solicited and answers provided to the satisfaction of the patient/family/POA.
--- NOTE | 2024-01-31 07:12 | PM.IMHP ---
H&P: HPI History of Present Illness Date/Time: 01/31/24 07:12 Chief Complaint: chronic hypertension, breech presentation Narrative: Patient is a 23 year old at 37w1d who presents for external cephalic version. Her fetus has been in persistent breech position. Her has been otherwise complicated by chronic hypertension on metoprolol, with reassuring testing. She denies strong contractions, leakage of fluid, or vaginal bleeding. Good movement. Discussed risks and benefits of external cephalic version vs primary c section, and patient desires to proceed with external cephalic version. Will proceed with delivery by induction if ECV successful or PCS if unsuccessful. Review of Systems Review of Systems: All systems reviewed & are unremarkable except as noted in HPI and below PMFSH Past Medical History Medical History Anxiety Hypertension Hypovitaminosis D No acute medical problems Surgical History Surgical History No history of previous surgery Family History Family History Sibling Diabetes mellitus Grandparent Hypertension Kidney disease Mother Hypertension Kidney disease Father Seizures Social History Social History Smoking status: Never smoker Second hand tobacco smoke exposure: No Alcohol intake: never Substance use: never Substance use type: does not use Do You Feel Safe in your Home?: Yes Lack of Transportation: No Lack of Food: Never True Current Housing: I Have Housing Concerned About Future Housing: No Difficulty Paying Gas/Electric Bills: No Difficulty Paying for Meds: No Currently Unemployed: No Education: High School Diploma/GED Difficulty w/ Childcare or Family Care: No Living arrangements: with family Gender identity (if verbalized by the patient): Female Spiritual care concerns: No Meds Home Medications and Allergies Home Medications Medication Instructions Recorded Confirmed Type metoprolol succinate 50 mg 50 mg PO DAILY #30 tabs 05/30/23 01/31/24 Rx tablet,extended release 24 hr aspirin 81 mg tablet 81 mg PO DAILY 11/16/23 01/31/24 History vit no.95-ferrous 1 tablet PO DAILY 01/24/24 01/31/24 History fumarate 28 mg-folic acid 800 mcg tablet () Allergies Allergy/AdvReac Type Severity Reaction Status Date / Time dissolvable stitches Allergy Severe Hives Uncoded 01/29/24 12:40 Vital Signs Vital Signs - 24 hr 01/31/24 06:00 01/31/24 06:36 01/31/24 06:41 Temperature 98.2 F Pulse Rate 73 Blood Pressure 141/72 H Pulse Oximetry 100 100 01/31/24 06:46 01/31/24 06:53 01/31/24 06:55 Temperature Pulse Rate 75 Blood Pressure 156/110 H Pulse Oximetry 100 100 01/31/24 06:58 01/31/24 07:00 01/31/24 07:03 Temperature Pulse Rate 78 78 Blood Pressure 163/95 H 163/100 H Pulse Oximetry 100 100 01/31/24 07:08 Temperature Pulse Rate Blood Pressure Pulse Oximetry 100 Exam Const: General: comfortable and no acute distress HENMT: Mouth: Yes moist mucous membranes Eyes: General: appearance normal, both eyes and all related structures Cardio: Rate: regular rate Skin: General skin exam: normal color Extrem: General: normal to inspection Psych: Mental Status: mental status grossly normal H&P: Results Labs Labs: Short CBC 01/31/24 Range/Units 06:12 WBC 10.1 H (4.5-10.0) K/mm3 Hgb 10.3 L (12.0-15.0) g/dL Hct 29.3 L (37.0-47.0) % Plt Count 169 (150-375) k/mm3 Assessment and Plan Assessment and plan (1) Breech presentation: Code(s): O32.1XX0 - Maternal care for breech presentation, not applicable or unspecified Status: Acute Assessment and Plan: - risks and benefits of ECV vs PCS discussed with patient who desires to proceed with ECV (2) Chronic hypertension affecting : Code(s): O10.919 - Unspecified pre-existing hypertension complicating , unspecified trimester Status: Acute Assessment and Plan: - well controlled on metoprolol, mild elevation in the past few weeks - no s/s of superimposed preeclampsia - will proceed with delivery following version whether successful or not -continue metoprolol
[2024-01-31 07:18] LABS: HIV 1/2 Ab P24 Ag Result Negative (Negative)
[2024-01-31] MEDS: TERBUTALINE SULFATE 1 MG/ML VIAL 0.25 MG SUB-Q (07:29)
--- NOTE | 2024-01-31 07:41 | WPDHPUPDATE1 ---
History and Physical Update Update Date/Time: 01/31/24 07:41 History and Physical has been reviewed, including an updated exam of the patient. External cephalic version unsuccessful. Risks and benefits of primary c section discussed with patient who is agreeable to proceed. FHR reactive following version. Risks, benefits, and alternatives have been discussed and questions answered. Patient agrees to proceed with procedure.
[2024-01-31] MEDS: ACETAMINOPHEN 500 MG TABLET 1000 MG PO (07:56)
[2024-01-31] MEDS: ONDANSETRON INJ 4 MG/2 ML VIAL IV PUSH (07:57)
[2024-01-31] MEDS: FAMOTIDINE 20 MG/2 ML VIAL IV PUSH (07:57)
[2024-01-31] MEDS: ceFAZolin 2 GM/D5W 50 ML 2 GM/50 ML BAG IVPB (08:05)
[2024-01-31] MEDS: OXYTOCIN 30 UNITS/NS 500 ML 30 UNITS/500 ML BAG 125 UNITS IV CONT (09:11)
[2024-01-31 09:29] LABS: Rapid Plasma Reagin Non-Reactive (NonReactive)
[2024-01-31] MEDS: LOPERAMIDE HCL 2 MG CAPSULE PO (11:02)
[2024-01-31] MEDS: diphenhydrAMINE HCl CAP 25 MG CAPSULE (13:28)
[2024-01-31] MEDS: KETOROLAC 15 MG/ML VIAL (*BKC) IV PUSH ×2 (14:14→21:42)
[2024-01-31] MEDS: LIDOCAINE 5% PATCH 1 PATCH TRANSDERM (14:14)
[2024-01-31] MEDS: ACETAMINOPHEN 325 MG TABLET 650 MG PO ×2 (14:15→21:46)
[2024-01-31] MEDS: DOCUSATE SODIUM 100 MG CAPSULE PO (14:15)
[2024-01-31] MEDS: SIMETHICONE 80 MG TAB.CHEW PO (14:15)
--- NOTE | 2024-01-31 15:45 | PC.NURSE ---
1677- Primary RN called to say that baby had a good blood sugar and was going to attempt to breastfeed. Mom was holding baby but needed assistance with positioning. We first tried cross cradle, nose to nipple. Baby seemed eager and would open with a wide mouth but when latching would suck once or twice and then push the nipple out of her mouth. We had a few bursts of suckling where mom felt good tugging. Baby got sleepy after about 5 minutes so we switched to football and she woke again and seemed eager to latch. We had the same results in football, where baby would latch and suckle but would push the nipple out of her mouth. Mom had said when she tried to feed earlier, she thought baby had her tongue up. Encouraged skin to skin and observing for early feeding cues. We will check back in a half hour to see if baby is receptive to feeding. Discussed with mom the possibility of needing to pump and/or supplement since baby is 37 weeks and may tire easily. Mom is receptive to both of these options and has her breast pump here. Will reevaluate our plan in half an hour. Reported to primary RN. [id number]- Checked back with patient to see if baby had given an feeding cues. Baby is skin to skin and sleeping. Discussed with mom her options of attempting to wake baby and breastfeed, or moving on to pumping and doing some supplementation with formula. Mom would like to give baby a bottle and start pumping. She requested Enfamil and we reviewed bottle feeding, formula use, nipple options, and burping. We used a slow flow nipple and mom was able to give 10ml. We then started her pumping with her Lansinoh pump. Instructions given on cleaning, care, usage, that there should be no pain, pumping schedule for milk production, collection, and storage of human milk. Patient was assessed for correct placement, flange size, to pump for comfort and nipple stretching/stimulation for adequate milk production every 3 hours (8 times in 24 hours). Mother voiced understanding of the education shared along with the admission folder for additional resource information. Reported to the Primary RN.
[2024-01-31] MEDS: diphenhydrAMINE HCl INJ 50 MG/ML VIAL 25 MG IV PUSH (21:59)
[2024-02-01] VITALS (11 sets, daily range): BP systolic 118–153; BP diastolic 61–96; PULSE 65–89; RESP 16; TEMP 36.3–37.3; O2SAT 98–100
[2024-02-01] MEDS: ACETAMINOPHEN 325 MG TABLET 650 MG PO ×4 (03:41→22:07)
[2024-02-01] MEDS: KETOROLAC 15 MG/ML VIAL (*BKC) IV PUSH (03:42)
[2024-02-01 05:06] LABS: Basophils Percent Auto 0.4 % (0.2-1.2); Eosinophils Absolute Auto 0.1 K/mm3 (0-0.3); Eosinophils Percent Auto 0.5 % (0-4.4); Immature Granulocyte Absolute 0.06 K/mm3 (0.00-0.031); Immature Granulocyte Percent A 0.5 % (0-0.5); Lymphocytes Percent Auto 21.7 % (18.3-44.2); Mean Corpuscular HGB Conc 33.7 g/dl (32-36); Mean Corpuscular Hemoglobin 34.7 pg (26-34); Mean Corpuscular Volume 103.1 fl (80-100); Mean Platelet Volume 11.8 fl (7.4-10.4); Monocytes Absolute Auto 0.7 K/mm3 (0.1-0.6); Monocytes Percent Auto 6.2 % (2.6-8.5); Neutrophils Absolute Auto 7.8 K/mm3 (1.3-6.7); Neutrophils Percent Auto 70.7 % (45.5-73.1); Platelet Count Result 134 k/mm3 (150-375); Red Blood Count 1.93 M/mm3 (4.2-5.4); Red Cell Distribution Width 12.8 % (11.5-14.5)
[2024-02-01 05:08] LABS: Hemoglobin 6.7 g/dL (12.0-15.0)
[2024-02-01 05:09] LABS: Hematocrit 19.9 % (37.0-47.0)
--- NOTE | 2024-02-01 05:11 | PC.NURSE ---
0510 - Lab called this RN to report a critical lab value of 6.7 for Hgb and 19.9 for hematocrit. 0511 - This RN contacted Marilyn Butt [facility] to report the critical lab values. Marilyn Butt ordered 2 units of blood to be given and a follow up CBC to be drawn 4 hours following completion of blood administration. This RN ordered the 2 units of blood at this time.
--- NOTE | 2024-02-01 07:46 | WPDANLDPN2 ---
Anes-Prog Note L&D Date/Time: 02/01/24 07:46 Comfortable throughout: section Neuraxial method: epidural Epidural/Spinal procedure site: tender Neuro status: Neuro function grossly intact. Cardiovascular status: normal Respiratory status: normal Airway patency: baseline Mental status: baseline Post-Op hydration status: normal Vital Signs: Last Vital Signs Temp 36.5 C 02/01/24 06:52 Pulse 65 02/01/24 06:52 Resp 16 02/01/24 06:52 BP 118/69 02/01/24 06:52 Pulse Ox 100 02/01/24 06:52 O2 Del Method Room Air 01/31/24 20:00 Pain score (VAS): 3/10 I/O: Intake & Output 01/31/24 01/31/24 02/01/24 15:59 23:59 07:59 Intake Total 218.8 0 Output Total 2405 1000 650 Balance -2186.2 -1000 -650 Post-procedural complaints: none Patient feedback: Patient satisfied with anesthetic care.
--- NOTE | 2024-02-01 07:47 | WPDANLDNPN2 ---
Anes-Prog Note L&D-Neuraxial Date/Time: 02/01/24 07:47 Neuraxial medications: epidural PF morphine Opiod-related complaints: pruritis moderate, treatment effective Patient feedback: Patient satisfied with post-operative pain management.
--- NOTE | 2024-02-01 08:20 | PC.NURSE ---
Introductions were made, then consulted with patient to assess needs related to . Discussed with mother her?plans to feed?her and the?experience so far. She has been pumping and bottle feeding overnight. She did attempt to breastfeed sometimes but baby continues to keep her tongue up and isn't able to maintain a latch. Encouraged patient to call today for assistance with latch and postitioning. Resources provided for inpatient and outpatient services with the feeding sheet, mom/baby guide and name/number written on the communication board. Mother voiced understanding of information and will call if there is a request for assistance. Reported to the Primary RN.
--- NOTE | 2024-02-01 08:20 | PM.OBPNVD ---
OB - PN: Subj Subjective Date/time seen: 02/01/24 08:20 Patient comments: no complaints, pain well controlled, tolerating diet and flatus present OB - PN: Obj Data Labs 02/01/24 03:55 Labs: Laboratory Results - last 24 hr 01/31/24 02/01/24 06:12 03:55 WBC 11.0 H RBC 1.93 L Hgb 6.7 L* D Hct 19.9 L* MCV 103.1 H MCH 34.7 H MCHC 33.7 RDW 12.8 Plt Count 134 L MPV 11.8 H Immature Gran % (Auto) 0.5 Neut % (Auto) 70.7 Lymph % (Auto) 21.7 [place] % (Auto) 6.2 Eos % (Auto) 0.5 Baso % (Auto) 0.4 Lymph # (Auto) 2.40 [place] # (Auto) 0.7 H Eos # (Auto) 0.1 Baso # (Auto) 0.0 Abs Immat Gran (auto) 0.06 H Absolute Neuts (auto) 7.8 H Absolute Nucleated RBC 0.000 Nucleated RBC % 0.0 RPR Non-reactive Blood Type A Positive Antibody Screen Negative Crossmatch See Detail OB - PN A/P Plan day: 1 Comments: Post Op LTCS - no problems, routine recovery Time Spent With Patient Time: Total time spent is greater than 50% in coordination of care (as documented) at patient's floor/unit and/or counseling patient: Exam Const: General: cooperative, healthy appearing, comfortable and no acute distress Resp: Auscultation: no crackles, no rales, no rhonchi and no wheezes Cardio: Rhythm: regular rhythm Heart sounds: no click and no murmurs GI: Inspection: non-distended Auscultation: normal bowel sounds Extrem: General: normal to inspection, no pedal edema and no calf tenderness
--- NOTE | 2024-02-01 09:04 | W.PM.OBCSD ---
OB - Delivery Note Procedure Delivery date: 01/31/24 Pre-op diagnosis: Breech Presentation and Chronic Hypertension Post-op Diagnosis: Same Delivery monitor: External FHT Prior to decision for section, ACOG/SMFM labor guidelines were considered and discussed with the patient and staff. Decision made to proceed with the section.: Yes Procedure Performed: Primary Primary branch: low cervical, transverse Surgeon: Thai Bustamante MD Anesthesia type: Epidural Description of Procedure/Findings: The patient was taken to the operating room where she was placed in the dorsal supine position with a leftward tilt. The electronic monitor was placed and heart rate was found to be reassuring. She was prepped and draped in the normal sterile fashion, and anesthesia was checked to be adequate. A Pfannenstiel skin incision was made with the scalpel and carried through to the underlying layer of fascia with the scalpel. The fascia was incised in the midline and the incision extended laterally with the Agrawal scissors. The superior aspect of the fascial incision was then grasped with Deonna clamps, elevated, and the underlying rectus muscles dissected off bluntly and with Agrawal scissors. Attention was then turned to the inferior aspect of the fascial incision, which in similar fashion was grasped, elevated, and the rectus muscles dissected off.? The rectus muscles were then in the midline, and the peritoneum entered bluntly. The peritoneal incision was extended superiorly and inferiorly with good visualization of the bladder. With the bladder blade providing retraction and visualization, the lower uterine segment was incised in a transverse fashion with the scalpel. The uterine incision was then extended laterally. The bladder blade was removed and the infant's breech was elevated and delivered atraumatically. The remainder of the was then delivered without difficulty, and the infant's nose and mouth were suctioned with the bulb suction. The umbilical cord was doubly clamped and cut. The infant was then handed off to the waiting nursing staff. Specimens then obtained as listed below. The placenta was then removed manually in pieces with manual extraction until a smooth myometrial surface was palpated. The uterus was exteriorized and cleared of all clots and debris. The uterine incision was repaired with 0-Monocryl in a running, interlocked fashion. The posterior cul-de-sac was manually cleared of all clots and debris. The uterus was returned to the abdomen. The gutters were then manually cleared of all clots and debris.? The uterine incision was visualized to be hemostatic. The fascia was reapproximated with 0-PDS in a running fashion. The subcutaneous tissues were irrigated with warmed normal saline, and hemostasis was assured. The skin was closed with 4-0 monocryl in a running subcuticular stitch. Fundal pressure was applied to express remaining intrauterine clots and debris. The patient tolerated the procedure well. Sponge, lap, and needle counts were correct times three per nursing. The patient was taken to the recovery room in stable condition. Specimen: Yes Estimated Blood Loss: 1,500 Urine Output: 900 Pathology: Yes Complications: No immediate complications Condition: Stable Disposition: Floor [facility] Baby Date of : 01/31/24 Gestational Age by Date: 37 Infant gender: Female Weight (pounds): 5 Weight (ounces): 9 presentation: parag breech Placenta delivery description: Manual Removal and Uterine Exploration Cord Vessel Description: 3 Vessels and Nuchal Cord
[2024-02-01] MEDS: IBUPROFEN 600 MG TABLET PO ×3 (09:35→22:07)
[2024-02-01] MEDS: METOPROLOL SUCCINATE EXT REL 50 MG TABCR PO (09:35)
[2024-02-01] MEDS: MULTIVIT/MIN/PREN/FOL AC/IRON TABLET 1 TAB PO (09:36)
[2024-02-01] MEDS: DOCUSATE SODIUM 100 MG CAPSULE PO ×2 (09:36→15:35)
[2024-02-01] MEDS: POLYSACCHARIDE IRON COMPLEX 150 MG CAPSULE PO ×2 (09:36→15:35)
[2024-02-01] MEDS: SIMETHICONE 80 MG TAB.CHEW PO ×2 (09:36→15:35)
[2024-02-01 15:10] LABS: Hematocrit 28.2 % (37.0-47.0); Hemoglobin 9.7 g/dL (12.0-15.0); Mean Corpuscular HGB Conc 34.4 g/dl (32-36); Mean Corpuscular Hemoglobin 32.6 pg (26-34); Mean Corpuscular Volume 94.6 fl (80-100); Mean Platelet Volume 10.8 fl (7.4-10.4); Platelet Count Result 139 k/mm3 (150-375); Red Blood Count 2.98 M/mm3 (4.2-5.4); Red Cell Distribution Width 16.3 % (11.5-14.5); White Blood Count 11.7 K/mm3 (4.5-10.0)
[2024-02-01] MEDS: LIDOCAINE 5% PATCH 1 PATCH TRANSDERM (15:35)
[2024-02-01] MEDS: HYDROcodone/acetaminophen (*CRX) 10-325 MG TABLET 1 TAB PO (22:07)
[2024-02-02] MEDS: ACETAMINOPHEN 325 MG TABLET 650 MG PO ×2 (04:05→10:11)
[2024-02-02] MEDS: IBUPROFEN 600 MG TABLET PO ×2 (04:05→10:11)
[2024-02-02] MEDS: SIMETHICONE 80 MG TAB.CHEW PO (07:21)
[2024-02-02] MEDS: HYDROcodone/acetaminophen (*CRX) 10-325 MG TABLET 1 TAB PO (07:21)
[2024-02-02] MEDS: POLYSACCHARIDE IRON COMPLEX 150 MG CAPSULE PO (07:21)
[2024-02-02 07:25] VITALS: BP 139/94; PULSE 73; RESP 16; TEMP 37.1; O2SAT 99
--- NOTE | 2024-02-02 08:25 | PC.NURSE ---
Addendum entered by Marilyn Molina RN 02/02/24 09:00: Upon entering room, mother was pumping using her own EDIT: BREAST PUMP* from home in a size 25mm flange. Original Note: Upon entering room, mother was pumping using her own nipple shield from home in a size 25mm flange. Upon assessing her nipple size and shield being used, it was determined that she needed a smaller flange. 25mm flange was switched out with 21mm flange. Instructions given on cleaning, care, usage, that there should be no pain, pumping schedule for milk production, collection, and storage of human milk. Educated mother on how often she should be pumping during the day and throughout the night. Mother plans to continue attempting to place to breast and will call this RN with next feeding if she needs assistance with latching infant. Mother encouraged to record the pumping schedule on the feeding sheet.? folder given with information on , latching , pumping, storing breast milk. Mother voiced understanding of the education. Reported to the Primary RN.
[2024-02-02 08:35] VITALS: PULSE 73
[2024-02-02] MEDS: DOCUSATE SODIUM 100 MG CAPSULE PO (08:35)
[2024-02-02] MEDS: METOPROLOL SUCCINATE EXT REL 50 MG TABCR PO (08:35)
[2024-02-02] MEDS: MULTIVIT/MIN/PREN/FOL AC/IRON TABLET 1 TAB PO (08:35)
--- NOTE | 2024-02-02 08:50 | PM.OBPNVD ---
OB - PN: Subj Subjective Date/time seen: 02/02/24 08:50 Interval history: PPD#2 Doing well, pain controlled Recieved 2u pRBC yesterday, feeling well Voiding without issue Passing flatus Desires d/c home today OB - PN: Obj Data Labs 02/01/24 15:04 Labs: Laboratory Results - last 24 hr 01/31/24 02/01/24 06:12 15:04 WBC 11.7 H RBC 2.98 L Hgb 9.7 L D Hct 28.2 L MCV 94.6 D MCH 32.6 D MCHC 34.4 RDW 16.3 H Plt Count 139 L MPV 10.8 H Blood Type A Positive Antibody Screen Negative Crossmatch See Detail OB - PN A/P Assessment and Plan (1) S/P : Code(s): Z98.891 - History of uterine scar from previous surgery Status: Acute (2) Chronic hypertension affecting : Code(s): O10.919 - Unspecified pre-existing hypertension complicating , unspecified trimester Status: Acute Assessment and Plan: - overall normotensive since delivery Plan day: 2 Plan: routine care and discharge home Time Spent With Patient Time: Total time spent is greater than 50% in coordination of care (as documented) at patient's floor/unit and/or counseling patient: Review of Systems Review of Systems: All systems reviewed & are unremarkable except as noted in HPI and below Exam Const: General: comfortable and no acute distress Orientation/consciousness: patient oriented x3 Resp: Effort & Inspection: normal respiratory effort GI: Other: soft, nontender, nondistended
--- NOTE | 2024-02-02 10:23 | PC.NURSE ---
Patient viewed the discharge video Mother & Baby Care, The First Two Weeks . Patient was given the opportunity and encouraged to ask questions. Patient verbalized understanding of information shared and has been given the mother/baby guide for home reference.
--- NOTE | 2024-02-02 11:28 | P.DS_ITS ---
DS: Admitting Diagnosis Discharge Date 02/02/24 Admitting Diagnosis chronic hypertension, breech presentation DS: Discharge Diagnosis Discharge Diagnosis (1) S/P : Code(s): Z98.891 - History of uterine scar from previous surgery Status: Acute (2) Chronic hypertension affecting : Code(s): O10.919 - Unspecified pre-existing hypertension complicating , unspecified trimester Status: Acute OB - DS: Summary OB Procedures : None OB Procedures Intrapartum: Spontaneous Vag Delivery OB Procedures: : None Peripartum Data Procedures: Procedures Operation Date: 01/31/24 07:30 Actual Procedure Side Surgeon p Possible Primary Section Thai Bustamante MD Time Spent with Patient Time attestation: Total time spent providing and/or coordinating discharge services: DS: Data Data Completed and Pending Completed studies during hospitalization: Pending at discharge 01/31/24 09:31 Surgical [PTH] Routine Labs on day of discharge: Labs from last 24 hours 02/01/24 01/31/24 15:04 06:12 WBC 11.7 H RBC 2.98 L Hgb 9.7 L D Hct 28.2 L MCV 94.6 D MCH 32.6 D MCHC 34.4 RDW 16.3 H Plt Count 139 L MPV 10.8 H Crossmatch See Detail Discharge Plan Discharge Attending physician on discharge: Thai Bustamante Discharging Clinician: Thai Bustamante Patient Disposition: Home, Self-Care Activity: may shower, may drive after 2 weeks, as tolerated and pelvic rest Diet: as tolerated Discharge Instructions: Education: Mom and Baby Guide Given to: Mother Follow-Up: Call your delivering provider's office for an appointment to be seen in: 1 Week Mom and baby should come to the [facility] for the follow-up appointment. Appointment Date/Time: February 03, 2024 at 8:00 am What to expect at your follow-up visit: Blood Pressure Check Physical Assessment Call [phone] if you are unable to keep your appointment time. BREAST CARE: * Wear a snug supportive bra. * For engorgement discomfort: Breast Feeding: * Apply warm moist washcloths * Express milk as needed to relieve engorgement * Wear loose clothing Bottle Feeding: * May apply ice packs * For sore nipples: * Identify correct latch-on * Apply warm moist washcloths before and after nursing * Air dry nipples after nursing * May apply Lansinoh cream to nipples ABDOMINAL INCISION: * Allow incision to air dry * Do NOT use lotions or powders on your incision * When showering, allow soap and water to run over the incision, but do not wash incision PERINEAL CARE: * Until bleeding stops, use your dejuan bottle after urinating * Change your pad frequently throughout the day * You may take sitz baths several times a day (fill your bathtub with warm water and soak for 20 minutes.) Do NOT bathe in the water * No tub baths until seen by your physician - You may shower ACTIVITY: * Rest as much as possible. * Do not exercise or lift anything heavier than your baby (such as laundry or other children.) * Avoid stairs or driving as much as possible. * Do not put anything into the vagina. No douching, tampons, or sexual activity until seen by physician. NOTIFY PHYSICIAN IF YOU HAVE ANY QUESTIONS OR IF ANY OF THE FOLLOWING SYMPTOMS OCCUR: * If your incision becomes red, swollen, or more painful than what you have experienced in the hospital. * If your vaginal bleeding becomes foul smelling. * If your vaginal bleeding becomes more heavy than a period or if your bleeding changes from pink to bright red. However, you may pass an occasional walnut- sized clot once or twice for the first week . * If you experience a sharp, shooting pain in your calves. * If you discover a hard, reddened area on your breast or if you experience flu- like symptoms. DIET: * Eat regular, well-balanced meals. * Drink plenty of fluids daily. If , drink to thirst. Stand Alone Forms: General Discharge Information Follow-up/Referrals: Thai Bustamante MD [Physician] - 1 Week Discharge Medications: New hydrocodone-acetaminophen 5-325 mg Tablet 1 tablet PO Q3H PRN (Reason: Breakthrough Pain Rated 4-6) Qty: 18 0RF docusate sodium 100 mg Capsule 100 mg PO BID Qty: 60 0RF ibuprofen 600 mg Tablet 600 mg PO Q6H Qty: 30 0RF Continued PNV cmb#95-ferrous fumarate-FA [] 28 mg iron- 800 mcg Tablet 1 tablet PO DAILY metoprolol succinate 50 mg tablet extended release 24 hr 50 mg PO DAILY Qty: 30 4RF Hold Instructions: .Provider Order Discontinued aspirin 81 mg Tablet 81 mg PO DAILY Date of admission: 01/31/24 05:26 Primary Care Provider: Maureen,Marika Hernandez Admitting Provider: Thai Bustamante Attending physician on admission: Thai Bustamante Condition: Stable
[2024-02-03 08:28] VITALS: BP 147/84; PULSE 70; RESP 18; TEMP 36.8; O2SAT 100
== END 2024-02-02 12:19 | disposition home or self-care (01) | DRG 787 ==
LOC: ANHLDR 07:45 → ANHOB2 11:29
PROVIDERS: Obstetrics & Gynecology; Admitting Provider Obstetrics & Gynecology; PCP Nurse Practitioner Family; Visit Provider Obstetrics & Gynecology
PROC: 10D00Z1 Extraction of Products of Conception, Low, Open Approach (ICD-10-PCS; CPT 59514; 2024-01-31 07:30)
DX: O32.1XX0 Maternal care for breech presentation, not applicable or unspecified (principal); Z37.0 Single live birth; Z3A.37 37 weeks gestation of pregnancy; O10.92 Unspecified pre-existing hypertension complicating childbirth; O69.81X0 Labor and delivery complicated by cord around neck, without compression, not applicable or unspecified
CPT/HCPCS: 36415; 36430; 85025; 85027; 86592; 86703; 86850; 86900; 86901; 86923; 88307; A9270; G0432; J0690; J1100; J1200; J1885; J2003; J2004; J2274; J2371; J2405; J2590; J2795; J3105; J7120; P9016